=== PATIENT | female | born 1950 | race Caucasian/White ===

== ENCOUNTER 2017-04-26 19:21 | Emergency (ER) | payer OTHER ==
[~2017-04-26] VITALS: Ht 162.6 cm; Wt 97.0 kg
[~2017-04-26 19:21] MED LIST: ASPI-650 PO; CHOL100062 PO; GLIM1TAB2 PO; LANS30CA47 PO; MECL-77 PO; METO-53 PO; OMEP20CA16 PO
[2017-04-26 20:10] VITALS: Ht 162.6 cm; Wt 97.0 kg
[2017-04-26 23:26] LABS: BASOPHILS % 0.3 % (0.0-2.0); EOSINOPHILS # 0.1 10^3/ul (0.0-0.5); EOSINOPHILS % 1.1 % (0.0-7.0); HEMATOCRIT 39.5 % (37.0-47.0); HEMOGLOBIN 13.5 g/dl (12.0-16.0); LYMPHOCYTES # 3.7 10^3/ul (0.8-2.9); LYMPHOCYTES % 42.2 % (15.0-51.0); MEAN CORPUSCULAR HGB CONC 34.2 g/dl (32.0-37.0); MEAN CORPUSCULAR VOLUME 93.6 fl (82.0-101.0); MONOCYTE # 0.6 10^3/ul (0.3-0.9); MONOCYTES % 6.8 % (0.0-11.0); NEUTROPHIL # 4.3 10^3/ul (1.6-7.5); NEUTROPHILS % 49.4 % (39.0-77.0); PLATELET COUNT 265 10^3/UL (140-415); RED BLOOD COUNT 4.22 10^6/ul (4.20-5.40); RED CELL DISTRIBUTION WIDTH 12.6 % (11.5-14.5); WHITE BLOOD COUNT 8.8 10^3/ul (4.8-10.8)
[2017-04-26 23:53] LABS: ALANINE AMINOTRANSFERASE 49 IU/L (13-69); ALBUMIN 4.1 g/dl (3.3-4.9); ALBUMIN/GLOBULIN RATIO 0.97; ALKALINE PHOSPHATASE 98 IU/L (42-121); ANION GAP 15 (8-16); ASPARTATE AMINO TRANSFERASE 32 IU/L (15-46); BILIRUBIN,INDIRECT 0.6 mg/dl (0-1.1); BILIRUBIN,TOTAL 0.6 mg/dl (0.2-1.3); BLOOD UREA NITROGEN 13 mg/dl (7-20); CALCIUM 9.5 mg/dl (8.4-10.2); CARBON DIOXIDE 27 mmol/L (21-31); CHLORIDE 105 mmol/L (97-110); CREATININE 0.75 mg/dl (0.44-1.00); GLUCOSE 108 mg/dl (70-220); POTASSIUM 4.1 mmol/L (3.5-5.1); SODIUM 143 mmol/L (135-144); TOTAL PROTEIN 8.3 g/dl (6.1-8.1)
[2017-04-27 00:01] LABS: B-TYPE NATRIURETIC PEPTIDE 34 PG/ML (0-125)
[2017-04-27 00:13] LABS: TROPONIN-I < 0.012 ng/ml (0.00-0.12)
--- NOTE | 2017-04-27 00:50 | RADRPT ---
PROCEDURE: XR Chest. CLINICAL INDICATION: Chest pain. TECHNIQUE: Single frontal view of the chest. COMPARISON: None. FINDINGS: Mild cardiomegaly. The lungs are clear. No signs of pleural fluid or pneumothorax are seen. The osse ous structures and soft tissues are unremarkable. IMPRESSION: No evidence for active cardiopulmonary disease. RPTAT: [facility] Physician Adolfo Date Time Electronically viewed and signed by Physician Adolfo on 04/27/2017 00:49 RS/
--- NOTE | 2017-04-27 00:52 | RADRPT ---
PROCEDURE: XR Hand. CLINICAL INDICATION: Right hand pain. Reference marker directed towards the base of the first metaca rpal. TECHNIQUE: AP, oblique and lateral views of the right hand were obtained. COMPARISON: No prior studies are available for comparison. FINDINGS: Demineralization limits evaluation of fine osseous detail. No acute fracture or dislocation is seen. There are no significant degenerative changes. There is no significant soft tissue swelling. IMPRESSION: Normal x-ray of the right hand x-ray . RPTAT: [facility] Physician Adolfo Date Time Electronically viewed and signed by Physician Adolfo on 04/27/2017 00:51 RS/
--- NOTE | 2017-05-15 23:06 | ERD ---
ER Documentation Chief Complaint Chief Complaint SUPPLIES FELL ON HER AT STORE. CWP, CP, AND RT WRIST PAIN. NO SOB HPI Is a 67-year-old comes in with complaints of chest wall pain chest pain right wrist pain after diaphoresis. No palpitations. No other current complaints. ROS All systems reviewed and are negative except as per history of present illness. Medications Home Meds Reported Medications Metoprolol (Lopressor) 50 Mg Tablet, 50 MG PO BID 02/18/12 Aspirin (Aspirin) 81 Mg Tablet, 81 MG PO DAILY 02/18/12 Glimepiride* (Glimepiride*) 1 Mg Tablet, 1 MG PO BID 02/18/12 Cholecalciferol* (Vitamin D3*) 1,000 Unit Tablet, 1000 UNIT PO DAILY 02/18/12 Lansoprazole* (Prevacid*) 30 Mg Capsule.dr, 30 MG PO DAILY 02/18/12 Meclizine Hcl* (Meclizine Hcl*) 25 Mg Tablet, 25 MG PO TID 02/18/12 Omeprazole* (Omeprazole*) 20 Mg Capsule.dr, 20 MG PO DAILY 02/18/12 Allergies Allergies: Coded Allergies: No Known Allergy (Unverified , 02/18/12) PMhx/Soc History of Surgery: Yes (APPENDECTOMY) Anesthesia Reaction: No Hx Neurological Disorder: No Hx Respiratory Disorders: No Hx Cardiac Disorders: Yes (HTN) Hx Psychiatric Problems: No Hx Miscellaneous Medical Probl: Yes (DM) Hx Alcohol Use: No Hx Substance Use: No Hx Tobacco Use: No Smoking Status: Never smoker Physical Exam Physical Exam Const: [] Head: Atraumatic Eyes: Normal Conjunctiva ENT: Normal External Ears, Nose and Mouth. Neck: Full range of motion..~ No meningismus. Resp: Clear to auscultation bilaterally Cardio: Regular rate and rhythm, no murmurs Abd: Soft, non tender, non distended. Normal bowel sounds Skin: No petechiae or rashes Back: No midline or flank tenderness Ext: No cyanosis, or edema Neur: Awake and alert Psych: Normal Mood and Affect Results 24 hrs Laboratory Tests Test 04/26/17 23:10 White Blood Count 8.810^3/ul Red Blood Count 4.2210^6/ul Hemoglobin 13.5g/dl Hematocrit 39.5% Mean Corpuscular Volume 93.6fl Mean Corpuscular Hemoglobin 32.0pg Mean Corpuscular Hemoglobin Concent 34.2g/dl Red Cell Distribution Width 12.6% Platelet Count 16145^3/UL Mean Platelet Volume 10.0fl Neutrophils % 49.4% Lymphocytes % 42.2% Monocytes % 6.8% Eosinophils % 1.1% Basophils % 0.3% Nucleated Red Blood Cells % 0.0/100WBC Neutrophils # 4.310^3/ul Lymphocytes # 3.710^3/ul Monocytes # 0.610^3/ul Eosinophils # 0.110^3/ul Basophils # 0.010^3/ul Nucleated Red Blood Cells # 0.010^3/ul Sodium Level 143mmol/L Potassium Level 4.1mmol/L Chloride Level 105mmol/L Carbon Dioxide Level 27mmol/L Anion Gap 15 Blood Urea Nitrogen 13mg/dl Creatinine 0.75mg/dl Glucose Level 108mg/dl Calcium Level 9.5mg/dl Total Bilirubin 0.6mg/dl Direct Bilirubin 0.00mg/dl Indirect Bilirubin 0.6mg/dl Aspartate Amino Transf (AST/SGOT) 32IU/L Alanine Aminotransferase (ALT/SGPT) 49IU/L Alkaline Phosphatase 98IU/L Troponin I < 0.012ng/ml B-Type Natriuretic Peptide 34PG/ML Total Protein 8.3g/dl Albumin 4.1g/dl Globulin 4.20g/dl Albumin/Globulin Ratio 0.97 Procedures/MDM EKG: Rate/Rhythm: [Normal Sinus Rhythm] QRS, ST, T-waves: [No changes consistent w/ acute ischemia] Impression: [No evidence of ischemia or arrhythmia] Chest X-ray 1V Interpreted by me: Soft Tissue: No acute abnormalities Bones: No acute abnormalities Mediastinum/Cardiac Silhouette/Lungs: [No acute abnormalities] X-ray Wrist 3V Interpreted by me: Scaphoid: [Normal] Bones: [No fracture] Joints: [No dislocation] Foreign body: [None] Patient's thoracic symptoms have stabilized while in the department and are stable for outpatient follow up. Exam and work up not consistent w/ ischemia, arrhythmia, PE or dissection. Departure Diagnosis: Primary Impression: Chest pain Chest pain type: unspecified Qualified Code: R07.9 - Chest pain, unspecified type Condition: Stable Patient Instructions: Chest Wall Contusion NOLVIA OSORIO May 15, 2017 23:06
== END 2017-04-27 01:20 | disposition home or self-care (01) ==
LOC: E/R 19:21
DX: R07.89 Other chest pain (principal); I10 Essential (primary) hypertension; E11.9 Type 2 diabetes mellitus without complications; Z79.82 Long term (current) use of aspirin; Z79.84 Long term (current) use of oral hypoglycemic drugs
CPT/HCPCS: 36415; 71010; 73110; 80053; 83880; 84484; 85025; 93005; Z7502